=== PATIENT | female | born 1980 | race Caucasian/White ===

== ENCOUNTER 2019-04-29 00:04 | Inpatient (IN) | payer MEDICAID ==
[2019-04-29] MEDS: ONDANSETRON 4 MG INJ IV ×2 (01:39→21:28)
[2019-04-29] MEDS: SOD CHLORIDE 0.9% 1,000 ML IV ×3 (01:39→16:50)
[2019-04-29] MEDS: morphine 4 MG/ML VIAL IV (01:40)
[2019-04-29 02:09] LABS: ADD MAN DIFF? NO
[2019-04-29 02:13] LABS: BASOPHILS % 0.2 % (0.0-2.0); EOSINOPHILS # 0.1 10^3/ul (0.0-0.5); EOSINOPHILS % 0.5 % (0.0-7.0); HEMATOCRIT 42.6 % (37.0-47.0); HEMOGLOBIN 13.9 g/dl (12.0-16.0); MEAN CORPUSCULAR HGB CONC 32.6 g/dl (32.0-37.0); MEAN CORPUSCULAR VOLUME 95.1 fl (82.0-101.0); MEAN PLATELET VOLUME 10.5 fl (7.4-10.4); MONOCYTE # 0.9 10^3/ul (0.3-0.9); MONOCYTES % 5.5 % (0.0-11.0); NEUTROPHIL # 11.6 10^3/ul (1.6-7.5); NEUTROPHILS % 74.4 % (39.0-77.0); PLATELET COUNT 328 10^3/UL (140-415); RED BLOOD COUNT 4.48 10^6/ul (4.20-5.40); RED CELL DISTRIBUTION WIDTH 13.2 % (11.5-14.5)
[2019-04-29 02:13] LABS: WHITE BLOOD COUNT 15.6 10^3/ul (4.8-10.8)
[2019-04-29 02:33] LABS: ALANINE AMINOTRANSFERASE 52 IU/L (13-69); ALBUMIN/GLOBULIN RATIO 1.25; ALKALINE PHOSPHATASE 81 IU/L (42-121); AMYLASE 78 U/L (11-123); ANION GAP 10 (5-13); ASPARTATE AMINO TRANSFERASE 34 IU/L (15-46); BILIRUBIN,INDIRECT 0.3 mg/dl (0-1.1); BILIRUBIN,TOTAL 0.3 mg/dl (0.2-1.3); BLOOD UREA NITROGEN 21 mg/dl (7-20); CALCIUM 10.3 mg/dl (8.4-10.2); CARBON DIOXIDE 28 mmol/L (21-31); CHLORIDE 99 mmol/L (97-110); CREATININE 0.83 mg/dl (0.44-1.00); Estimated GFR > 60 mL/min (>60); GLUCOSE 112 mg/dl (70-220); INR 0.85; LIPASE 135 U/L (23-300); POTASSIUM 3.5 mmol/L (3.5-5.1); PROTIME 11.7 Sec (11.9-14.9); PT RATIO 0.9; SODIUM 137 mmol/L (135-144); TOTAL PROTEIN 7.2 g/dl (6.1-8.1)
[2019-04-29 02:43] LABS: TROPONIN-I < 0.012 ng/ml (0.000-0.120)
[2019-04-29 02:44] LABS: ADD UMIC YES; UR ASCORBIC ACID NEGATIVE (NEGATIVE); UR BILIRUBIN (Dip) NEGATIVE (NEGATIVE); UR BLOOD (Dip) 1+ mg/dL (NEGATIVE); UR CLARITY CLEAR (CLEAR); UR COLOR YELLOW (YELLOW); UR GLUCOSE (Dip) NEGATIVE (NEGATIVE); UR KETONES (Dip) NEGATIVE (NEGATIVE); UR LEUKOCYTE ESTERASE (Dip) NEGATIVE Leu/ul (NEGATIVE); UR NITRITE (Dip) NEGATIVE (NEGATIVE); UR RBC 0 /HPF (0-5); UR SPECIFIC GRAVITY (Dip) 1.008 (1.003-1.030); UR TOTAL PROTEIN (Dip) NEGATIVE (NEGATIVE); UR UROBILINOGEN (Dip) NEGATIVE (NEGATIVE); UR WBC 1 /HPF (0-5)
[2019-04-29] MEDS: IOHEXOL 300MG/ML 150 ML BTL (03:15)
[2019-04-29] MEDS: SOD CHLORIDE 0.9% 100 ML (03:16)
[2019-04-29] MEDS: PIPER-TAZO 3.375 GM IV (PMX) 100 ML IVPB ×4 (03:49→21:22)
[2019-04-29] MEDS ORDERED: morphine 2 MG INJ IV ×2 (08:00→18:00)
[2019-04-29] MEDS ORDERED: NACL 0.9% 3 ML SYG IV (08:00)
[2019-04-29] MEDS: DEXTROSE 5%-0.45% NACL 1,000 ML IV (09:16)
[2019-04-29] MEDS: KETOROLAC 15 MG INJ IV ×2 (13:30→20:17)
[2019-04-29] MEDS ORDERED: PROPOFOL 20 ML (17:11)
[2019-04-29] MEDS ORDERED: CEFAZOLIN 1 GM INJ (17:11)
[2019-04-29] MEDS ORDERED: ROCURONIUM 50 MG INJ (17:11)
[2019-04-29] MEDS ORDERED: GLYCOPYRROLATE 0.4 MG INJ (17:11)
[2019-04-29] MEDS ORDERED: NEOSTIGMINE 3 MG/3 ML SYRINGE (17:11)
[2019-04-29] MEDS ORDERED: DESFLURANE 15 MIN (17:11)
[2019-04-29] MEDS ORDERED: MIDAZOLAM 1 MG/ML 2 ML INJ (17:14)
[2019-04-29] MEDS ORDERED: FENTAnyl 50 MCG/ML VIAL ×2 (17:14→17:34)
[2019-04-29] MEDS ORDERED: DEXAMETHASONE 4 MG/ML 5 ML INJ (17:14)
[2019-04-29] MEDS ORDERED: ONDANSETRON 4 MG INJ (17:14)
[2019-04-29] MEDS ORDERED: EPHEDrine 25 MG/5 ML SYG IV ×2 (17:30)
[2019-04-29] MEDS ORDERED: MEPERIDINE 25 MG INJ IV ×2 (17:30)
[2019-04-29] MEDS ORDERED: HYDROmorphONE 1 MG/5 ML IV SYRINGE IV ×6 (17:30)
[2019-04-29] MEDS ORDERED: DIPHENHYDRAMINE 50 MG INJ IV ×2 (17:30)
[2019-04-29] MEDS ORDERED: LABETALOL HCL 20MG INJ IV ×2 (17:30)
[2019-04-29] MEDS ORDERED: OXYCODONE/ACETAMINOPHEN (5/325) TAB PO ×4 (17:30)
[2019-04-29] MEDS ORDERED: TRIMETHOBENZAMIDE 100 MG/ML VIAL IM ×2 (17:30)
[2019-04-29] MEDS ORDERED: FENTAnyl 50 MCG/ML VIAL IV ×5 (17:30)
[2019-04-29] MEDS ORDERED: ONDANSETRON 4 MG INJ IV ×3 (17:30→18:00)
[2019-04-29] MEDS ORDERED: IPRATROPIUM (NEB) 0.5 MG/2.5 ML AMP HHN ×2 (17:30)
[2019-04-29] MEDS ORDERED: MIDAZOLAM 1 MG/ML 2 ML INJ IV ×2 (17:30)
[2019-04-29] MEDS ORDERED: hydrALAzine 20 MG INJ IV ×2 (17:30)
[2019-04-29] MEDS ORDERED: ALBUTEROL 0.083% (NEB) 2.5 MG/3 ML AMP HHN ×2 (17:30)
[2019-04-29] MEDS: LIDOCAINE 1%/EPI 30 ML INJ (17:33)
[2019-04-29] MEDS: BUPIVACAINE 0.25% (MPF) 30 ML INJ (17:33)
[2019-04-29] MEDS ORDERED: SUGAMMADEX SODIUM 200 MG/2 ML VIAL IV (17:43)
[2019-04-29] MEDS ORDERED: KETOROLAC 30 MG INJ (17:44)
[2019-04-29] MEDS ORDERED: ACETAMINOPHEN 325 MG TAB PO (18:00)
[2019-04-29] MEDS ORDERED: IBUPROFEN 600 MG TAB PO (18:00)
[2019-04-29] MEDS ORDERED: CEFTRIAXONE 1 GM/50 ML (PMX) 50 ML IVPB (18:00)
[2019-04-29] MEDS: FENTAnyl 50 MCG/ML VIAL IV (18:33)
[2019-04-29] MEDS: D5-NS + KCL 20 MEQ 1,000 ML IV (21:23)
[2019-04-30] MEDS: PIPER-TAZO 3.375 GM IV (PMX) 100 ML IVPB ×2 (02:04→08:41)
[2019-04-30] MEDS: KETOROLAC 15 MG INJ IV (02:19)
[2019-04-30] MEDS: D5-NS + KCL 20 MEQ 1,000 ML IV ×2 (03:54→09:26)
[2019-04-30] MEDS: SOD CHLORIDE 0.9% 1,000 ML IV (06:10)
[2019-04-30] MEDS: ENOXAPARIN 40 MG/0.4 ML SYG SC (06:34)
[2019-04-30 07:06] LABS: ADD MAN DIFF? NO
[2019-04-30 07:13] LABS: WHITE BLOOD COUNT 13.4 10^3/ul (4.8-10.8)
[2019-04-30 07:13] LABS: BASOPHILS % 0.1 % (0.0-2.0); HEMATOCRIT 39.7 % (37.0-47.0); LYMPHOCYTES # 1.5 10^3/ul (0.8-2.9); LYMPHOCYTES % 11.1 % (15.0-51.0); MEAN CORPUSCULAR HGB CONC 32.7 g/dl (32.0-37.0); MEAN CORPUSCULAR VOLUME 94.5 fl (82.0-101.0); MEAN PLATELET VOLUME 10.7 fl (7.4-10.4); MONOCYTE # 0.4 10^3/ul (0.3-0.9); NEUTROPHIL # 11.4 10^3/ul (1.6-7.5); NEUTROPHILS % 85.1 % (39.0-77.0); PLATELET COUNT 308 10^3/UL (140-415); RED CELL DISTRIBUTION WIDTH 12.9 % (11.5-14.5)
[2019-04-30 07:31] LABS: ALANINE AMINOTRANSFERASE 40 IU/L (13-69); ALBUMIN 3.8 g/dl (3.3-4.9); ALBUMIN/GLOBULIN RATIO 1.35; ALKALINE PHOSPHATASE 53 IU/L (42-121); ANION GAP 8 (5-13); ASPARTATE AMINO TRANSFERASE 28 IU/L (15-46); BILIRUBIN,INDIRECT 0.3 mg/dl (0-1.1); BILIRUBIN,TOTAL 0.3 mg/dl (0.2-1.3); BLOOD UREA NITROGEN 10 mg/dl (7-20); CALCIUM 9.1 mg/dl (8.4-10.2); CARBON DIOXIDE 22 mmol/L (21-31); CHLORIDE 107 mmol/L (97-110); CREATININE 0.69 mg/dl (0.44-1.00); Estimated GFR > 60 mL/min (>60); GLUCOSE 146 mg/dl (70-220); PHOSPHORUS 3.4 mg/dl (2.5-4.9); SODIUM 137 mmol/L (135-144); TOTAL PROTEIN 6.6 g/dl (6.1-8.1)
[2019-04-30] MEDS: HYDROCODONE/APAP (5/325) TAB PO (12:34)
== END 2019-04-30 13:30 | disposition home or self-care (01) | DRG 343 ==
LOC: FTE 00:04 → PP2 05:30
PROC: 0DTJ4ZZ Resection of Appendix, Percutaneous Endoscopic Approach (ICD-10-PCS; principal; 2019-04-29 17:07)
DX: K35.80 Unspecified acute appendicitis (principal); D72.829 Elevated white blood cell count, unspecified; K76.0 Fatty (change of) liver, not elsewhere classified
CPT/HCPCS: 74177; 76705; 80053; 81001; 81025; 82150; 83690; 83735; 84100; 84484; 85025; 85610; 85730; 87086; 88304; 93005; 96374; 96375; 99285-25